=== PATIENT | female | born 1990 | race Caucasian/White ===

== ENCOUNTER 2021-06-22 20:38 | Emergency (ER) | payer OTHER ==
[~2021-06-22] VITALS: Ht 154.9 cm; Wt 68.0 kg
[2021-06-22 21:14] LABS: BASOPHILS ABSOLUTE AUTO 0.03 K/mm3 (0.00-0.23); BASOPHILS PERCENT AUTO 0 % (0-2); EOSINOPHILS ABSOLUTE AUTO 0.37 K/mm3 (0.00-0.68); EOSINOPHILS PERCENT AUTO 5 % (0-6); Hematocrit 43.8 % (33.0-51.0); Hemoglobin 14.9 g/dL (11.5-16.0); IMMATURE GRAN ABSOLUTE AUTO 0.01 K/mm3 (0.00-0.10); IMMATURE GRAN PERCENT AUTO 0 % (0-1); LYMPHOCYTES ABSOLUTE AUTO 2.99 K/mm3 (0.84-5.20); LYMPHOCYTES PERCENT AUTO 39 % (21-46); MONOCYTES PERCENT AUTO 8 % (4-13); Mean Corpuscular Volume 85 fL (80-100); Mean Platelet Volume 9.8 fL (9.1-12.4); NEUTROPHILS ABSOLUTE AUTO 3.58 K/mm3 (1.96-9.15); NEUTROPHILS PERCENT AUTO 47 % (41-73); Platelet Count 272 K/mm3 (150-400); RDW Standard Deviation 37.4 fL (35.1-46.3); Red Blood Cell Count 5.13 M/mm3 (3.80-5.20); White Blood Cell Count 7.58 K/mm3 (4.00-11.30)
[2021-06-22] MEDS ORDERED: VENL37.5 PO (21:15)
[2021-06-22] MEDS ORDERED: NORGESTIMATE-E1 EAC1 PO (21:17)
[2021-06-22 21:55] LABS: Alanine Aminotransfer (ALT/SGP 24 U/L (12-78); Albumin/Globulin Ratio 1.1 (0.8-1.8); Alk Phos 96 U/L (50-136); Anion Gap 8 mmol/L (6-16); Aspartate Aminotrans (AST/SGOT 16 U/L (12-37); Bilirubin, Total 0.3 mg/dL (0.1-1.0); Blood Urea Nitrogen 16 mg/dL (8-24); Bun/Creatinine Ratio 24.6 (12.0-20.0); CO2, Blood 29 mmol/L (21-32); Calcium, Blood 10.1 mg/dL (8.5-10.1); Chloride, Blood 103 mmol/L (98-108); Creatinine, Blood 0.65 mg/dL (0.40-1.00); Globulin, Blood 3.5 g/dL (2.2-4.0); Glomerular Filtration Rate >60 (60-); Glucose, Blood 110 mg/dL (70-99); Potassium, Blood 4.1 mmol/L (3.5-5.5); Sodium, Blood 140 mmol/L (136-145); Total Protein, Blood 7.5 g/dL (6.4-8.2); Troponin I <0.015 ng/mL (0.000-0.040)
== END 2021-06-22 22:55 | disposition home or self-care (01) ==
LOC: ER 20:38
PROVIDERS: Physician Assistant
DX: R07.81 Pleurodynia (principal); R05.9 Cough, unspecified; Z88.0 Allergy status to penicillin
CPT/HCPCS: 80053; 83690; 84484; 85025; 85379; 93005; 93010

== ENCOUNTER 2023-04-03 14:47 | Emergency (ER) | payer OTHER ==
[~2023-04-03] VITALS: Ht 157.5 cm; Wt 48.5 kg
[~2023-04-03 14:47] MED LIST: NORGESTIMATE-E1 EAC1 PO; VENL37.5 PO
[2023-04-03 15:28] VITALS: BP 114/87
[2023-04-03 15:51] LABS: BASOPHILS ABSOLUTE AUTO 0.04 K/mm3 (0.00-0.23); BASOPHILS PERCENT AUTO 1 % (0-2); EOSINOPHILS PERCENT AUTO 3 % (0-6); Hematocrit 38.4 % (33.0-51.0); Hemoglobin 13.2 g/dL (11.5-16.0); IMMATURE GRAN ABSOLUTE AUTO 0.01 K/mm3 (0.00-0.10); IMMATURE GRAN PERCENT AUTO 0 % (0-1); LYMPHOCYTES ABSOLUTE AUTO 1.88 K/mm3 (0.84-5.20); LYMPHOCYTES PERCENT AUTO 25 % (21-46); MONOCYTES ABSOLUTE AUTO 0.56 K/mm3 (0.16-1.47); MONOCYTES PERCENT AUTO 7 % (4-13); Mean Corpuscular HGB 29.8 pg (26.0-34.0); Mean Corpuscular HGB Conc 34.4 g/dL (31.5-36.5); Mean Corpuscular Volume 87 fL (80-100); Mean Platelet Volume 9.6 fL (9.1-12.4); NEUTROPHILS ABSOLUTE AUTO 4.91 K/mm3 (1.96-9.15); NEUTROPHILS PERCENT AUTO 65 % (41-73); Platelet Count 260 K/mm3 (150-400); RDW Coefficient Variation 12.2 % (11.7-14.2); RDW Standard Deviation 38.8 fL (35.1-46.3); Red Blood Cell Count 4.43 M/mm3 (3.80-5.20)
[2023-04-03 16:11] LABS: Source, Urine Clean Catch
[2023-04-03 16:15] LABS: Appearance, Urine Clear (Clear); Bilirubin, Urine Neg (Neg); Blood, Urine 5+ (Neg); Color, Urine Yellow (P-Yellow); Glucose Qualitative, Urine Neg (Neg); Ketones, Urine Neg (Neg); Leukocyte Esterase, Urine Neg (Neg); Nitrite, Urine Neg (Neg); Protein, Urine Neg (Neg); Specific Gravity, Urine 1.005 (1.003-1.022); Urobilinogen, Urine NORM (Normal)
[2023-04-03 16:26] LABS: Albumin/Globulin Ratio 1.2 (0.8-1.8); Bilirubin, Total 0.3 mg/dL (0.1-1.0); Bun/Creatinine Ratio 14.6 (12.0-20.0); Calcium, Blood 9.3 mg/dL (8.5-10.1); Creatinine, Blood 0.62 mg/dL (0.40-1.00); Globulin, Blood 3.4 g/dL (2.2-4.0); Potassium, Blood 3.7 mmol/L (3.5-5.5); Total Protein, Blood 7.4 g/dL (6.4-8.2)
[2023-04-03 16:27] LABS: Bacteria Not Seen /hpf; Red Blood Cells, Urine 0-2 /hpf (0-2); Squamous Epithelial Cells Rare /hpf (Few); White Blood Cells, Urine 0-2 /hpf (0-5)
== END 2023-04-03 18:36 | disposition home or self-care (01) ==
LOC: ER 14:47
PROVIDERS: Physician Assistant
DX: O03.9 Complete or unspecified spontaneous abortion without complication (principal); Z88.0 Allergy status to penicillin; Z79.899 Other long term (current) drug therapy
CPT/HCPCS: 76801; 76817; 80053; 81001; 84702; 85025; 86900; 86901; 99284-25

== ENCOUNTER 2024-02-09 19:03 | Inpatient (IN) | payer OTHER ==
[~2024-02-09] VITALS: Ht 157.5 cm; Wt 63.2 kg
[~2024-02-09 19:03] MED LIST changes: +FOLI1 PO; +Lidocaine HCl 1% 30 ML SDV XX ONE; +PRENATAL TABLE1 EAC2 PO
[2024-02-09] MEDS ORDERED: Misoprostol 200 MCG Tab PR PRN (19:55)
[2024-02-09] MEDS ORDERED: Acetaminophen 500 MG Tab PO PRN (19:55)
[2024-02-09] MEDS ORDERED: Oxytocin 10 Unit / ML Vial IM PRN (19:55)
[2024-02-09] MEDS ORDERED: OXYTOCIN/RINGER'S LACTATE 500 ML IV PRN (19:55)
[2024-02-09] MEDS ORDERED: ePHEDrine Sulfate 50 MG/ML 1ML Injection XX PRN (19:55)
[2024-02-09] MEDS ORDERED: Methylergonovine Maleate 0.2MG / ML 1ML Amp IM PRN (19:55)
[2024-02-09] MEDS ORDERED: Tranexamic Acid 100 ML IV SCH (19:55)
[2024-02-09] MEDS ORDERED: FentaNYL 2mcg/ml-Bup 0.1% Epd 250 ML EPI PRN (19:55)
[2024-02-09] MEDS ORDERED: Ondansetron HCl 2 MG / ML 2ML Vial IV PRN (19:55)
[2024-02-09] MEDS ORDERED: Lactated Ringer's 1,000 ML IV PRN ×4 (19:55→23:40)
[2024-02-09] MEDS ORDERED: Carboprost Tromethamine 250 MCG/ML 1ML Amp IM PRN (19:55)
[2024-02-09] MEDS ORDERED: Misoprostol 200 MCG Tab BC PRN (19:55)
[2024-02-09] MEDS ORDERED: Calcium Carbonate 500 MG Tab Chew PO PRN (20:00)
[2024-02-09] MEDS ORDERED: Misoprostol 25 MCG Tab PO SCH (20:00)
[2024-02-09] MEDS ORDERED: CeFAZolin Sodium 2,000 MG in NS 100 ML IV SCH (20:00)
[2024-02-09 20:06] LABS: BASOPHILS ABSOLUTE AUTO 0.03 K/mm3 (0.00-0.23); BASOPHILS PERCENT AUTO 0 % (0-2); EOSINOPHILS ABSOLUTE AUTO 0.19 K/mm3 (0.00-0.68); EOSINOPHILS PERCENT AUTO 2 % (0-6); Hematocrit 37.4 % (33.0-51.0); Hemoglobin 13.2 g/dL (11.5-16.0); IMMATURE GRAN ABSOLUTE AUTO 0.05 K/mm3 (0.00-0.10); IMMATURE GRAN PERCENT AUTO 1 % (0-1); LYMPHOCYTES ABSOLUTE AUTO 1.84 K/mm3 (0.84-5.20); LYMPHOCYTES PERCENT AUTO 21 % (21-46); MONOCYTES ABSOLUTE AUTO 0.58 K/mm3 (0.16-1.47); MONOCYTES PERCENT AUTO 7 % (4-13); Mean Corpuscular HGB 30.6 pg (26.0-34.0); Mean Corpuscular HGB Conc 35.3 g/dL (31.5-36.5); Mean Corpuscular Volume 87 fL (80-100); NEUTROPHILS ABSOLUTE AUTO 6.17 K/mm3 (1.96-9.15); NEUTROPHILS PERCENT AUTO 70 % (41-73); Platelet Count 160 K/mm3 (150-400); RDW Coefficient Variation 11.9 % (11.7-14.2); RDW Standard Deviation 37.6 fL (35.1-46.3); Red Blood Cell Count 4.32 M/mm3 (3.80-5.20); White Blood Cell Count 8.86 K/mm3 (4.00-11.30)
[2024-02-09] MEDS ORDERED: DOCU100 PO (20:14)
[2024-02-09 20:33] VITALS: BP 107/70
[2024-02-09 21:03] VITALS: BP 101/69
[2024-02-09 21:34] VITALS: BP 107/70
[2024-02-09 22:04] VITALS: BP 109/74
[2024-02-09 22:33] VITALS: BP 104/64
[2024-02-09] MEDS ORDERED: FentaNYL Citrate 50 MCG/ML 2 ML Injection IV PRN (23:35)
[2024-02-10] VITALS (41 sets, daily range): BP systolic 89–136; BP diastolic 51–92
[2024-02-10] MEDS ORDERED: OXYTOCIN/RINGER'S LACTATE 500 ML IV SCH ×3 (00:30→17:15)
[2024-02-10] MEDS ORDERED: CeFAZolin Sodium 1,000 MG in NS 50 ML IV SCH (04:30)
[2024-02-10] MEDS ORDERED: Lactated Ringer's 1,000 ML IV SCH ×2 (05:10→17:10)
[2024-02-10] MEDS ORDERED: Misoprostol 25 MCG Tab VAG PRN (08:05)
[2024-02-10] MEDS ORDERED: Misoprostol 25 MCG Tab PO ONE (08:10)
[2024-02-10] MEDS ORDERED: Acetaminophen 325 MG TABLET PO PRN (17:10)
[2024-02-10] MEDS ORDERED: Carboprost Tromethamine 250 MCG/ML 1ML Amp IM PRN (17:10)
[2024-02-10] MEDS ORDERED: Ibuprofen 400 MG Tab PO PRN (17:10)
[2024-02-10] MEDS ORDERED: Ketorolac Tromethamine 30mg Vial IV PRN (17:10)
[2024-02-10] MEDS ORDERED: Benzocaine Topical Anesthetic Spray 60GM TOP PRN (17:10)
[2024-02-10] MEDS ORDERED: Lanolin Cream TOP PRN (17:15)
[2024-02-10] MEDS ORDERED: Witch Hazel/Glycerin PADS TOP PRN (17:15)
[2024-02-10] MEDS ORDERED: Misoprostol 200 MCG Tab PR PRN (17:15)
[2024-02-10] MEDS ORDERED: Docusate Sodium 100 MG Cap PO PRN (17:15)
--- NOTE | 2024-02-10 18:24 | NUR ---
1800 PT UP TO BRP AND SHOWER. ANGELINE WELL. AMB IN ROOM WELL. C/O PAIN IN PERINEUM. TORDOL GIVEN. ROSARIO MEDS IN BATHROOM.
[2024-02-11 00:08] VITALS: BP 94/51
[2024-02-11 05:01] VITALS: BP 100/66
[2024-02-11 08:55] VITALS: BP 104/69
[2024-02-11] MEDS ORDERED: Prenatal Vit/FE Fumarate/FA 1 Tab PO SCH (09:00)
[2024-02-11 11:21] VITALS: BP 117/79
[2024-02-11 15:38] VITALS: BP 100/67
[2024-02-11 18:25] VITALS: BP 117/83
--- NOTE | 2024-02-11 19:00 | NUR ---
DC PATIENT WALKED TO CAR. BABY SAFE IN CAR SEAT.
--- NOTE | 2024-02-11 19:09 | NUR ---
PT DISCHARGE EDUCATION GIVEN WITH OPPORTUNITY TO ASK ANY QUESTIONS. PT IS EXPERIENCED MOTHER. VERBALIZED UNDERSTANDING. DENIED ANY FURTHER QUESTIONS OR ADDITIONAL TEACHING.
== END 2024-02-11 19:00 | disposition home or self-care (01) | DRG 807 ==
LOC: OBS 19:03 → BC 19:06 → OBS 19:15 → BC 19:15
PROVIDERS: ADMIT Obstetrics & Gynecology
PROC: 10E0XZZ Delivery of Products of Conception, External Approach (ICD-10-PCS; principal; 2024-02-10)
PROC: 0KQM0ZZ Repair Perineum Muscle, Open Approach (ICD-10-PCS; 2024-02-10)
PROC: 3E0R3BZ Introduction of Anesthetic Agent into Spinal Canal, Percutaneous Approach (ICD-10-PCS; 2024-02-10)
PROC: 00HU33Z Insertion of Infusion Device into Spinal Canal, Percutaneous Approach (ICD-10-PCS; 2024-02-10)
PROC: 10907ZC Drainage of Amniotic Fluid, Therapeutic from Products of Conception, Via Natural or Artificial Opening (ICD-10-PCS; 2024-02-10)
DX: O48.0 Post-term pregnancy (principal); Z37.0 Single live birth; O99.824 Streptococcus B carrier state complicating childbirth; Z3A.40 40 weeks gestation of pregnancy; O70.1 Second degree perineal laceration during delivery
CPT/HCPCS: 36415; 51702; 85025; 86850; 86900; 86901; A9270; J0690; J1885; J2590; J3010; J7120

== ENCOUNTER → 2025-02-15 | Outpatient (CLI) | payer OTHER ==
[~2025-02-15] MED LIST changes: +DOCU100 PO; -Lidocaine HCl 1% 30 ML SDV XX ONE
[2025-02-15 14:38] LABS: Source, Urine Clean Catch
[2025-02-15 19:27] LABS: Red Blood Cells, Urine 0-2 /hpf (0-2); White Blood Cells, Urine 0-2 /hpf (0-5)
== END ==
LOC: LAB SHORT 14:35 → LAB 14:35
PROVIDERS: Obstetrics & Gynecology
DX: Z34.81 Encounter for supervision of other normal pregnancy, first trimester (principal)
CPT/HCPCS: 81015; 87086; 87147

== ENCOUNTER → 2025-03-14 | Outpatient (CLI) | payer OTHER | LOC: LAB 10:07 → LAB SHORT 10:07 | DX: Z22.330 Carrier of Group B streptococcus (principal) | CPT/HCPCS: 87086; 87147 ==